=== PATIENT | female | born 2000 | race African-American/Black ===

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

== ENCOUNTER 2023-01-16 19:07 | Emergency (ER) | payer MEDICAID ==
[~2023-01-16] VITALS: Ht 172.7 cm; Wt 74.0 kg
[2023-01-16 19:08] VITALS: BP 166/98
== END 2023-01-16 19:08 | disposition left against medical advice (07) ==
LOC: ER 19:07
DX: Z53.21 Procedure and treatment not carried out due to patient leaving prior to being seen by health care provider (principal)